=== PATIENT | female | born 1945 | race Caucasian/White ===

== ENCOUNTER 2017-06-03 21:39 | Emergency (ER) | payer MEDICARE ==
[~2017-06-03] VITALS: Ht 157.5 cm; Wt 63.6 kg
[2017-06-03 21:47] VITALS: BP 172/69; PULSE 74; RESP 16; O2SAT 97
--- NOTE | 2017-06-03 22:53 | ED.REPORT ---
HPI-Trauma Minor / Fall Date of Service Jun 03, 2017 ED Provider: Farooq Franklin MD A 72 year old female with a history of osteopenia presents to the ED with left shoulder pain secondary to a GLF that occurred just prior to arrival. She reportedly tripped over her husbands foot and fell onto her left side. Patient has also been experiencing a headache and left knee pain. She has been unable to flex or extend the shoulder since the incident. Patient denies taking any OTC medications for pain. She denies taking any blood thinners. She currently takes 1 mg of Aspirin per day. Patient denies any neck pain. Nursing Notes Stated Complaint: FELL HIT HEAD,LEFT SHOULDER Chief Complaint: Multiple Trauma/Fall Nursing Notes Reviewed: Yes Allergies: Coded Allergies: aspirin (Verified Allergy, Severe, 06/03/17) morphine (Verified Allergy, Severe, 06/03/17) acetaminophen (Verified Adverse Reaction, Severe, OK TO TAKE PERCOCET, 06/04) hydrocodone bitartrate (Verified Adverse Reaction, Severe, OK TO TAKE PERCOCET, 06/04/17) Scheduled PRN oxyCODONE-Acetaminophen 5-325 mg (oxyCODONE-Acetaminophen 5-325 mg) 1 Each Tablet 1 TAB PO Q4H PRN PRN For Pain General Time Seen by MD: 22:19 Chief Complaint Fall Hx Obtained From: Patient Arrived By: Walk-in Onset Occurred: Just prior to arrival Symptom Duration: Since onset Caused by: Accidental Location: Shoulder left Quality: Painful Severity: Current: Moderate Severity: Maximum: Moderate Associated with: Denies: Neck pain Pertinent Negative: Pt denies other symptoms Recent Healthcare: No recent doctor visit, No recent hospitalization Past Medical History Past Medical History Osteopenia Past Surgical History None reported. Smoking History Unknown if Ever Smoker Social History Other Social History: Good social support, , Local resident Ambulatory Status Independent Review of Systems Musculoskeletal: Reports: Joint pain (L shoulder & L knee pain), Denies: Neck pain Neurologic: Reports: Headache Complete sys rev & neg: except as marked. Physical Exam Initial Vital Signs Vital Signs (First) Date Time Temp Pulse Resp B/P Pulse Ox O2 Delivery O2 Flow Rate FiO2 06/03/17 21:47 37.0 74 16 172/69 97 Room Air Initial VS: Reviewed, Vital signs abnormal Extremities: Vascular intact, Neuro intact, No swelling, No tenderness Skin: Warm, Dry, No cyanosis Neurologic: Alert, Oriented, Nonfocal Psychiatric: Mood/affect normal, Behavior normal, Normal thought content General/Constitutional: Awake, Alert, No acute distress, Well appearing, Well developed Neck: Atraumatic, Supple, Full range of motion, No midline vertebral tend Head / Eyes: Atraumatic, Normocephalic, PERRL Respiratory / Chest: Atraumatic, Breath sounds NL, Breath sounds = bilat, No respiratory distress Cardiovascular: Heart rate NL, Regular rhythm, Heart sounds NL Abdomen: Atraumatic, Soft, Non-tender Upper Extremity / MS: Atraumatic, No deformity, Neurologic intact, Vascular intact Left Shoulder: Positive: ROM reduced (Unable to move), Tenderness present..., Negative: Deformity present Lower Extremity / Pelvis / MS: Atraumatic, Full range of motion, No deformity, Neurologic intact, Vascular intact Left Knee: Positive: Tenderness present... (Mild), Negative: Swelling present... Interpretation & Diagnostics X-Ray Interpretation Xray Interpretation: IMPRESSION: Evidence of proximal comminuted humeral fracture X-Ray Ordered: Shoulder left Interpretation / Wet Read by: Wet read ED physician CT Head Interpretation IMPRESSION No acute intracranial traumatic abnormalities Study: Head CT no contrast Interpretation / Wet Read by: Interpret - Radiologist (Nightshift) Procedures Splint Application - Fx Mgt Time: 00:09 Procedure Performed by: Home Housekeeper Type of Immobilization: Sling Definitive Fracture Care: Splint Post-Procedure / Complications: Cap refill normal, Post splint vascular nl, Post splint neuro nl, Condition improved, Tolerated procedure well, Patient stable Splint Post-Application Eval Extremity Condition: Cap refill 2 sec, Distal sensation intact, Distal motor Intact, No compartment syndrome Re-Eval/Medical Decision Med Decision/Clinical Course 72-year-old female who fell and sustained a contusion of the left orbit and fractured her left shoulder. CT is negative. There does not appear to be any other significant injuries. She is being discharged home with a shoulder immobilizer and pain medication. Risk of medication were discussed in detail. She will follow up with her primary doctor for further evaluation and treatment. Re-Evaluation/Progress #1: Time of Eval: 23:54 Patient Status: Condition improved Re-Evaluation/Progress Note: Pt is informed of the fracture seen on the X-ray. Her questions about the treatment plan are addressed. Re-Evaluation/Progress #2: Time of Eval: 00:08 Patient Status: Pain improved Re-Evaluation/Progress Note: Splint is applied. Patient tolerates procedure without complication. Her symptoms have improved upon recheck. All questions are addressed. She is informed of her results and diagnosis. The patient understands and agrees with the intended treatment plan. Counseled Regarding: Diagnosis, Lab results, Need for follow-up, When/why to return to ED Discharge & Departure Impression: Primary Impression: Fracture of humeral head, left, closed Encounter type: initial encounter Qualified Code: S42.292A - Other displaced fracture of upper end of left humerus, initial encounter for closed fracture Additional Impressions: Head injury Encounter type: initial encounter Qualified Code: S09.90XA - Unspecified injury of head, initial encounter Fall from ground level Disposition: Home Discharge Condition All VS Reviewed: Yes Condition: Improved Patient Instructions: Fall Prevention (ED), Head Injury (ED), Narcotic Pain Management (ED), Proximal Humerus Fracture (ED) Additional Instructions: Wear the shoulder immobilizer all the time, even while sleeping. It is helpful to have 2 immobilizers ([employer] black knit elastic is the best) so that when you shower you can just let one get wet and then changed into the dry one after the shower. Oxycodone/acetaminophen (Percocet) 5/325, one or 2 every 4-6 hours as needed for severe pain, #10 dispensed and #20 prescription written. You may use this along with extra Tylenol but do not exceed 3000 mg of Tylenol in a day. You may also use ibuprofen with this medicine. Schedule to see your primary provider in 7-10 days for recheck. Discuss further pain management with her at that time. Referrals: Alicia Haynes MD (PCP) Scribe Attestation Portions of this note were transcribed by Heather Kirby. I, Dr. Franklin personally performed the history, physical exam and medical decision-making; I reviewed and confirmed the accuracy of the information in the transcribed note. copies to: Alicia Haynes MD, Farooq Charles MD Jun 03, 2017 22:53 HEATHER KIRBY Jun 03, 2017 23:04
[2017-06-03] MEDS ORDERED: oxyCODONE-Acetamin 5-325 mg Tablet PO ONE (23:05)
[2017-06-03] MEDS ORDERED: Ondansetron 8 mg ODT Tablet PO ONE (23:35)
[2017-06-03 23:42] VITALS: BP 144/66; PULSE 79; RESP 17; O2SAT 97
[2017-06-04] MEDS ORDERED: _oxyCODONE/APAP 5-325 mg Tablet PO PRN (00:15)
[2017-06-04] MEDS ORDERED: OXYC1TAB24 PO (00:35)
[2017-06-04 00:54] VITALS: BP 126/57; PULSE 69; RESP 20; O2SAT 99
--- NOTE | 2017-06-04 08:14 | DRSVH ---
PROCEDURE: X-RAY LEFT SHOULDER, MINIMUM TWO VIEWS ([id number]) INDICATIONS: Fall TECHNIQUE: 3 views of the shoulder were acquired. COMPARISON: None. FINDINGS: Bones: There is a comminuted fracture of the surgical neck of the humerus as well as the humeral head . Humeral head fragments are minimally displaced from one another the fracture of the greater tuberos ity as a separate fragment. The shaft of the humerus is minimally anterior to the head of the humerus Soft tissues: No suspicious soft tissue calcifications. IMPRESSION: Comminuted left humeral fracture involving the surgical neck and the head. Dictated by: Domingo Cohen M.D. on 06/04/2017 at 8:11 Approved by: Domingo Cohen M.D. on 06/04/2017 at 8:12
--- NOTE | 2017-06-04 08:23 | DRSVH ---
PROCEDURE: CT BRAIN WITHOUT CONTRAST ([id number]) INDICATIONS: fall, head trauma TECHNIQUE: Noncontrast 4.5 mm thick angled axial sections acquired from the foramen magnum to the vertex, with c oronal reformats. COMPARISON: None. FINDINGS: Image quality: Good. CSF spaces: Basal cisterns are patent. No extra-axial fluid collections. The ventricles are symmet polly in size and shape. Brain: No intracranial bleeds or masses. There is cerebral volume loss for age, with resultant vent ricular and sulcal prominence. There are periventricular and deep white matter chronic small vessel ischemic changes. There is intracranial internal carotid artery atherosclerosis. Skull and face: Calvarium and visualized facial bones appear intact, without suspicious lesions. Th ere is subcutaneous hematoma over the lateral aspect of the left orbit and the lateral left frontal a shaneka. Sinuses: Visualized sinuses and mastoids are clear. IMPRESSION: No intracranial abnormality identified. Left periorbital subcutaneous edema or hematoma. Dictated by: Domingo Cohen M.D. on 06/04/2017 at 8:19 this report corresponds to the findings of audie felix preliminary NSR report. Approved by: Domingo Cohen M.D. on 06/04/2017 at 8:21
== END 2017-06-04 01:06 | disposition home or self-care (01) ==
LOC: SED 21:39
DX: S42.292A Other displaced fracture of upper end of left humerus, initial encounter for closed fracture (principal); S05.12XA Contusion of eyeball and orbital tissues, left eye, initial encounter; W01.0XXA Fall on same level from slipping, tripping and stumbling without subsequent striking against object, initial encounter; Y93.9 Activity, unspecified; Y92.9 Unspecified place or not applicable; Y99.8 Other external cause status; M85.80 Other specified disorders of bone density and structure, unspecified site; Z88.5 Allergy status to narcotic agent; Z88.8 Allergy status to other drugs, medicaments and biological substances